=== PATIENT | male | born 1930 | race Caucasian/White ===

== ENCOUNTER 2017-01-21 23:05 | Inpatient (IN) | payer MEDICARE, BC ==
[~2017-01-21 23:05] MED LIST: ADULT LOW DOSE81 MG PO; ALEVE220 MG; ATIVAN0.5 MG PO; CALCIUM 600 +1 EAC2 PO; CIPRO XR500 MG PO; CIPRO500 MG PO; ETODOLAC; FINASTERIDE5 M2 PO; FISH OIL 1,0001 CA PO; FOSINOPRIL SODI10 MG; FOSINOPRIL SODI10 MG PO; GLUCOPHAGE XR500 MG PO; GLUCOPHAGE500 MG; GLUCOSAMINE & C1 CAP; IMDUR30 MG; IMDUR60 MG; IMDUR60 MG PO; LO-DOSE ASPIRIN81 MG; LOPRESSOR25 MG/TA1 PO; LORAZEPAM0.5 MG; METOPROLOL TART25 MG; METOPROLOL TART25 MG PO; NITROGLYCERIN0.4 M2 SL; NITROGLYCERIN0.4 MG; NITROGLYCERINE PO; NORVASC10 MG; PLAVIX75 MG; PLAVIX75 MG PO; PROSCAR5 MG; RANITIDINE HCL150 M3 PO; RANITIDINE HCL150 MG; SIMVASTATIN40 MG PO; SIMVASTATIN80 MG PO; SMZ-TMP DS 800-1 TAB; TRAMADOL HCL50 MG; TRAMADOL HCL50 MG PO; TYLENOL; TYLENOL325 MG PO; ZOCOR40 M1 PO; ZOCOR80 MG
[2017-01-21] MEDS ORDERED: ASPIRIN EC81 MG PO (23:24)
[2017-01-21] MEDS ORDERED: COREG3.125 M1 PO (23:24)
[2017-01-21] MEDS ORDERED: ULTRAM50 M1 PO (23:25)
[2017-01-21 23:26] LABS: BASO % 0.2 % (0-2); EOS % 2.1 % (0-7); EOSINOPHIL ABSOLUTE COUNT 0.2 tho/cmm (0.0-0.7); HCT-HEMATOCRIT 34.2 % (36.0-53.5); IMMATURE GRANULOCYTES ABSOLUTE 0.08 tho/cmm (0-0.03); IMMATURE GRANULOCYTES PERCENT 0.8 % (0-0.3); LYMPH ABSOLUTE COUNT 1.2 tho/cmm (0.8-4.5); MCH (MEAN CORPUSCULAR HGB) 26.2 pg (28.0-32.0); MCHC MEAN CORPUSCULAR HGB CONC 32.2 % (32.0-36.0); MCV (MEAN CELL VOLUME) 81.4 fl (82.0-96.0); MEAN PLATELET VOLUME 7.9 cmc (9.4-12.4); MONO % 8.1 % (0-12); MONOCYTE ABSOLUTE COUNT 0.8 tho/cmm (0.0-1.2); NEUTROPHIL ABSOLUTE COUNT 7.4 tho/cmm (1.6-8.0); NEUTROPHIL-AUTOMATED 7.4 tho/cmm (1.6-8.0); NEUTROPHILS % 76.8 % (40-80); PLATELET COUNT 273 tho/cmm (150-450); RED CELL DISTRIBUTION WIDTH 14.8 % (12.4-16.4); WHITE BLOOD COUNT 9.6 tho/cmm (4.0-10.0)
[2017-01-21 23:43] LABS: ANION GAP 13 mmol/L (0-20); BLOOD UREA NITROGEN 25 mg/dl (6-24); CALCIUM 8.6 mg/dl (8.5-10.5); CARBON DIOXIDE-VENOUS 24 mmol/L (22-32); CHLORIDE 107 mmol/l (96-110); CREATININE 1.21 mg/dl (0.60-1.30); GLUCOSE 227 mg/dL (70-110); POTASSIUM 4.2 mmol/L (3.7-5.1); SODIUM 140 mmol/L (135-145); eGFR VALUE FOR BLACK 62 mL/Min
[2017-01-22] MEDS ORDERED: SYNTHROID150 MC1 PO (05:24)
[2017-01-27] MEDS ORDERED: GLUCOPHAGE1000 M1 PO (12:26)
[2017-05-03] MEDS ORDERED: FOLIC ACID1 M1 PO (10:54)
[2017-05-03] MEDS ORDERED: [UNRECOGNIZED DRUG - OTHER] (10:58)
[2017-05-03] MEDS ORDERED: HYDROCODON-ACE1 EA16 PO (11:00)
[2017-05-03] MEDS ORDERED: ATIVAN0.5 M1 PO (11:01)
[2017-05-03] MEDS ORDERED: ZOFRAN ODT8 MG PO (11:02)
[2017-05-06] MEDS ORDERED: NYSTATIN100000 UNI SSW (16:18)
[2017-05-06] MEDS ORDERED: AUGMENTIN 875-1 EAC2 PO (16:22)
[2017-05-06] MEDS ORDERED: PREDNISONE10 M1 PO (16:27)
[2017-06-10] MEDS ORDERED: MORPHABOND ER15 MG PO (20:58)
== END 2017-01-23 16:10 | DRG 313 ==
LOC: EDMED 23:05 → EMR2 01-22 02:40 → 5WE 01-22 04:45
PROVIDERS: Emergency Medicine; Nurse Practitioner Family; Physician Assistant Medical; ADMIT Internal Medicine Cardiovascular Disease
DX: R07.89 Other chest pain (principal); I25.10 Atherosclerotic heart disease of native coronary artery without angina pectoris; R04.2 Hemoptysis; C34.90 Malignant neoplasm of unspecified part of unspecified bronchus or lung; D64.9 Anemia, unspecified; E11.9 Type 2 diabetes mellitus without complications; I10 Essential (primary) hypertension; E03.9 Hypothyroidism, unspecified; E78.5 Hyperlipidemia, unspecified; Z79.84 Long term (current) use of oral hypoglycemic drugs; Z95.5 Presence of coronary angioplasty implant and graft; Z79.82 Long term (current) use of aspirin; Z95.0 Presence of cardiac pacemaker; G47.33 Obstructive sleep apnea (adult) (pediatric); K21.9 Gastro-esophageal reflux disease without esophagitis; N40.0 Benign prostatic hyperplasia without lower urinary tract symptoms; Z86.73 Personal history of transient ischemic attack (TIA), and cerebral infarction without residual deficits; Z87.891 Personal history of nicotine dependence
CPT/HCPCS: C8924; G0378; J1815; J2270; J7030; Q9967

== ENCOUNTER 2017-02-24 18:47 | Emergency (ER) | payer MEDICARE, BC ==
[~2017-02-24 18:47] MED LIST changes: +ASPIRIN EC81 MG PO; +COREG3.125 M1 PO; +GLUCOPHAGE1000 M1 PO; +SYNTHROID150 MC1 PO; +ULTRAM50 M1 PO
[2017-02-24] MEDS ORDERED: HYDROCODON-ACE1 EA16 PO (19:16)
[2017-02-24] MEDS ORDERED: SENNA-DOCUSATE1 EAC1 PO (19:16)
[2017-02-24 19:49] LABS: BASO % 0.4 % (0-2); EOS % 1.9 % (0-7); EOSINOPHIL ABSOLUTE COUNT 0.2 tho/cmm (0.0-0.7); HCT-HEMATOCRIT 35.3 % (36.0-53.5); HGB-HEMOGLOBIN 11.4 gm/dl (13.5-17.0); IMMATURE GRANULOCYTES ABSOLUTE 0.08 tho/cmm (0-0.03); IMMATURE GRANULOCYTES PERCENT 0.9 % (0-0.3); LYMPH % 11.9 % (20-45); LYMPH ABSOLUTE COUNT 1.1 tho/cmm (0.8-4.5); MCH (MEAN CORPUSCULAR HGB) 25.4 pg (28.0-32.0); MCHC MEAN CORPUSCULAR HGB CONC 32.3 % (32.0-36.0); MCV (MEAN CELL VOLUME) 78.6 fl (82.0-96.0); MEAN PLATELET VOLUME 8.1 cmc (9.4-12.4); MONO % 7.6 % (0-12); MONOCYTE ABSOLUTE COUNT 0.7 tho/cmm (0.0-1.2); NEUTROPHIL ABSOLUTE COUNT 7.2 tho/cmm (1.6-8.0); NEUTROPHIL-AUTOMATED 7.2 tho/cmm (1.6-8.0); NEUTROPHILS % 77.3 % (40-80); PLATELET COUNT 265 tho/cmm (150-450); RED BLOOD COUNT 4.49 mil/cmm (4.40-5.70); RED CELL DISTRIBUTION WIDTH 15.9 % (12.4-16.4); WHITE BLOOD COUNT 9.3 tho/cmm (4.0-10.0)
[2017-02-24 20:05] LABS: ANION GAP 16 mmol/L (0-20); BLOOD UREA NITROGEN 22 mg/dl (6-24); CALCIUM 8.6 mg/dl (8.5-10.5); CARBON DIOXIDE-VENOUS 22 mmol/L (22-32); CHLORIDE 105 mmol/l (96-110); CREATININE 1.17 mg/dl (0.60-1.30); GLUCOSE 208 mg/dL (70-110); POTASSIUM 4.2 mmol/L (3.7-5.1); SODIUM 139 mmol/L (135-145); eGFR VALUE FOR BLACK 65 mL/Min
[2017-02-24 20:42] LABS: INR 1.1 INR (0.9-1.1); PROTHROMBIN TIME 12.5 SECONDS (9.0-13.6)
[2017-05-03] MEDS ORDERED: FOLIC ACID1 M1 PO (10:54)
[2017-05-03] MEDS ORDERED: [UNRECOGNIZED DRUG - OTHER] (10:58)
[2017-05-03] MEDS ORDERED: HYDROCODON-ACE1 EA16 PO (11:00)
[2017-05-03] MEDS ORDERED: ATIVAN0.5 M1 PO (11:01)
[2017-05-03] MEDS ORDERED: ZOFRAN ODT8 MG PO (11:02)
[2017-05-06] MEDS ORDERED: NYSTATIN100000 UNI SSW (16:18)
[2017-05-06] MEDS ORDERED: AUGMENTIN 875-1 EAC2 PO (16:22)
[2017-05-06] MEDS ORDERED: PREDNISONE10 M1 PO (16:27)
[2017-06-10] MEDS ORDERED: MORPHABOND ER15 MG PO (20:58)
== END 2017-02-24 22:00 ==
LOC: EDMED 18:47
PROVIDERS: Emergency Medicine
DX: C34.90 Malignant neoplasm of unspecified part of unspecified bronchus or lung (principal); R09.02 Hypoxemia; E11.9 Type 2 diabetes mellitus without complications; J44.9 Chronic obstructive pulmonary disease, unspecified; Z86.73 Personal history of transient ischemic attack (TIA), and cerebral infarction without residual deficits; Z79.84 Long term (current) use of oral hypoglycemic drugs; Z99.81 Dependence on supplemental oxygen; Z95.0 Presence of cardiac pacemaker; Z79.899 Other long term (current) drug therapy; Z87.891 Personal history of nicotine dependence
CPT/HCPCS: J7030; Q9967

== ENCOUNTER 2017-03-03 15:16 | Inpatient (IN) | payer MEDICARE, BC, OTHER ==
[~2017-03-03 15:16] MED LIST changes: +HYDROCODON-ACE1 EA16 PO; +SENNA-DOCUSATE1 EAC1 PO
[2017-03-03] MEDS ORDERED: ACID CONTROL150 M2 PO (15:48)
[2017-03-03] MEDS ORDERED: TYLENOL EXTRA500 M1 PO (15:48)
[2017-03-03] MEDS ORDERED: LIDOCAINE-PRILO30 G1 TP (16:03)
[2017-03-03 17:50] LABS: BASO % 0.4 % (0-2); EOS % 2.9 % (0-7); EOSINOPHIL ABSOLUTE COUNT 0.3 tho/cmm (0.0-0.7); HCT-HEMATOCRIT 35.6 % (36.0-53.5); HGB-HEMOGLOBIN 11.6 gm/dl (13.5-17.0); IMMATURE GRANULOCYTES ABSOLUTE 0.17 tho/cmm (0-0.03); IMMATURE GRANULOCYTES PERCENT 1.8 % (0-0.3); LYMPH % 8.7 % (20-45); LYMPH ABSOLUTE COUNT 0.8 tho/cmm (0.8-4.5); MCH (MEAN CORPUSCULAR HGB) 25.4 pg (28.0-32.0); MCHC MEAN CORPUSCULAR HGB CONC 32.6 % (32.0-36.0); MCV (MEAN CELL VOLUME) 78.1 fl (82.0-96.0); MEAN PLATELET VOLUME 7.9 cmc (9.4-12.4); MONO % 11.4 % (0-12); MONOCYTE ABSOLUTE COUNT 1.1 tho/cmm (0.0-1.2); NEUTROPHIL ABSOLUTE COUNT 6.9 tho/cmm (1.6-8.0); NEUTROPHIL-AUTOMATED 6.9 tho/cmm (1.6-8.0); NEUTROPHILS % 74.8 % (40-80); PLATELET COUNT 248 tho/cmm (150-450); RED BLOOD COUNT 4.56 mil/cmm (4.40-5.70); WHITE BLOOD COUNT 9.3 tho/cmm (4.0-10.0)
[2017-03-03 18:05] LABS: ALB/GLOB RATIO 0.5 (0.8-2.0); ALBUMIN 2.3 g/dl (3.5-5.0); ALKALINE PHOSPHATASE 64 U/L (33-138); ALT/SGPT 19 U/L (12-78); ANION GAP 13 mmol/L (0-20); AST/SGOT 15 U/L (10-40); BILIRUBIN,TOTAL 0.3 mg/dl (0.0-1.5); BLOOD UREA NITROGEN 25 mg/dl (6-24); CALCIUM 8.9 mg/dl (8.5-10.5); CARBON DIOXIDE-VENOUS 26 mmol/L (22-32); CHLORIDE 104 mmol/l (96-110); CREATININE 1.19 mg/dl (0.60-1.30); GLUCOSE 118 mg/dL (70-110); POTASSIUM 4.8 mmol/L (3.7-5.1); SODIUM 138 mmol/L (135-145); eGFR VALUE FOR BLACK 63 mL/Min
[2017-03-03 18:09] LABS: TSH-THYROID STIMULATING HORM. 0.82 uIU/ml (0.40-3.80)
[2017-03-03 18:26] LABS: PROCALCITONIN 0.05 ng/ml (0.05-0.09)
[2017-03-03 18:35] LABS: ABG CO2 ARTERIAL 23 mmol/L (21-27); ARTERIAL BLD GAS O2 SATURATION 91 % (95-98); ARTERIAL BLOOD GAS PCO2 31 mmHg (32-45); ARTERIAL PO2 61 mmHg (70-100); BICARBONATE 22 mmol/L (21-28); BLOOD GAS BASE EXCESS -1 mM/L (-/+3); PH 7.47 Units (7.35-7.45)
[2017-03-06] MEDS ORDERED: KEFLEX250 M2 PO (13:58)
[2017-03-06] MEDS ORDERED: ZITHROMAX250 M1 PO (13:59)
[2017-03-06] MEDS ORDERED: IPRAT-ALBUT 0.5-3 ML INH (14:00)
[2017-03-06] MEDS ORDERED: MUCINEX600 M1 PO (14:02)
[2017-03-06] MEDS ORDERED: BROVANA15 MCG/22 INH (14:02)
[2017-03-06] MEDS ORDERED: PULMICORT0.5 MG/22 INH (14:03)
[2017-03-06] MEDS ORDERED: PREDNISONE10 M1 PO (14:08)
[2017-05-03] MEDS ORDERED: FOLIC ACID1 M1 PO (10:54)
[2017-05-03] MEDS ORDERED: [UNRECOGNIZED DRUG - OTHER] (10:58)
[2017-05-03] MEDS ORDERED: HYDROCODON-ACE1 EA16 PO (11:00)
[2017-05-03] MEDS ORDERED: ATIVAN0.5 M1 PO (11:01)
[2017-05-03] MEDS ORDERED: ZOFRAN ODT8 MG PO (11:02)
[2017-05-06] MEDS ORDERED: NYSTATIN100000 UNI SSW (16:18)
[2017-05-06] MEDS ORDERED: AUGMENTIN 875-1 EAC2 PO (16:22)
[2017-05-06] MEDS ORDERED: PREDNISONE10 M1 PO (16:27)
[2017-06-10] MEDS ORDERED: MORPHABOND ER15 MG PO (20:58)
== END 2017-03-06 17:30 | DRG 190 ==
LOC: 5WF 15:16
PROVIDERS: ADMIT Internal Medicine Critical Care Medicine
PROC: 5A09357 Assistance with Respiratory Ventilation, Less than 24 Consecutive Hours, Continuous Positive Airway Pressure (ICD-10-PCS; principal; 2017-03-03)
DX: J44.0 Chronic obstructive pulmonary disease with (acute) lower respiratory infection (principal); J18.9 Pneumonia, unspecified organism; J96.21 Acute and chronic respiratory failure with hypoxia; C79.89 Secondary malignant neoplasm of other specified sites; C34.90 Malignant neoplasm of unspecified part of unspecified bronchus or lung; E11.51 Type 2 diabetes mellitus with diabetic peripheral angiopathy without gangrene; E11.42 Type 2 diabetes mellitus with diabetic polyneuropathy; Z99.81 Dependence on supplemental oxygen; D64.9 Anemia, unspecified; G47.33 Obstructive sleep apnea (adult) (pediatric); Z66 Do not resuscitate; Z79.82 Long term (current) use of aspirin; Z79.84 Long term (current) use of oral hypoglycemic drugs; E03.9 Hypothyroidism, unspecified; M19.90 Unspecified osteoarthritis, unspecified site; N40.0 Benign prostatic hyperplasia without lower urinary tract symptoms; H91.90 Unspecified hearing loss, unspecified ear; Z87.891 Personal history of nicotine dependence; Z91.19 Patient's noncompliance with other medical treatment and regimen; I25.10 Atherosclerotic heart disease of native coronary artery without angina pectoris; Z95.0 Presence of cardiac pacemaker
CPT/HCPCS: J0456; J0696; J1815; J2930; J7050; J7512